=== PATIENT | female | born 1970 | race Caucasian/White ===

== ENCOUNTER 2019-11-06 08:52 | Day surgery (SDC) | payer BC ==
[~2019-11-06] VITALS: Ht 160 cm; Wt 62.2 kg
[~2019-11-06 08:52] MED LIST: ALBU90OI; ALBU90OI6 INH; ALLERGY SHOT; CRUTCH3 USE; CYAN500 PO; CYCL10 PO; ELET40TA PO; FLAX; Flonase 0.05% N16 GM; GABA100 PO; HYDACE5 PO; HYDMOR2 PO; IBUP400 PO; IBUP600 PO; METPRE4DP PO; MONT10T; MUSCLE RELAXER; Magnesium500 M1 PO; NAPR550 PO; Norco 5-325 Ta1 EACH PO; POTCIT5 PO; PROM25 PO; PROM50S PR; QVAR REDIHALE10.6 G1 INH; TOCO400; TOPI100 PO; TOPI50 PO; Ultram50 MG PO; Zofran Odt4 MG SL
[2019-11-06] MEDS ORDERED: TOPI25 PO (11:00)
== END 2019-11-06 13:53 | disposition home or self-care (01) ==
LOC: ORSCSDS 08:52
PROVIDERS: Orthopaedic Surgery
PROC: 0LN50ZZ Release Right Lower Arm and Wrist Tendon, Open Approach (ICD-10-PCS; principal; 2019-11-06 12:30)
DX: M65.4 Radial styloid tenosynovitis [de Quervain] (principal); J44.9 Chronic obstructive pulmonary disease, unspecified; J45.909 Unspecified asthma, uncomplicated; Z79.899 Other long term (current) drug therapy
CPT/HCPCS: J1100; J1885; J2250; J2405; J3010; J3370; J7120

== ENCOUNTER → 2021-10-02 | Outpatient (CLI) | payer BC ==
[~2021-10-02] MED LIST changes: +TOPI25 PO
[2021-10-06 14:08] LABS: HPV 16 Negative (Negative); HPV 18 Negative (Negative); HPV OTHER HR TYPES Negative (Negative)
== END ==
LOC: LAB SHORT 18:50 → LAB 18:50
PROVIDERS: Obstetrics & Gynecology
DX: Z01.419 Encounter for gynecological examination (general) (routine) without abnormal findings (principal)
CPT/HCPCS: 87624; G0123

== ENCOUNTER 2022-02-17 09:23 | Day surgery (SDC) | payer BC | END 2022-02-17 23:30 | disposition home or self-care (01) | LOC: RAD 09:23 → MRI 11:00 → RAD 23:30 → MRI 03-25 09:00 | DX: S83.281D Other tear of lateral meniscus, current injury, right knee, subsequent encounter (principal) | CPT/HCPCS: 20610; 73722; 77002; A9577; Q9967 ==

== ENCOUNTER 2022-02-23 12:19 | Day surgery (SDC) | payer BC ==
[~2022-02-23] VITALS: Ht 160 cm; Wt 61.0 kg
[2022-02-23] MEDS ORDERED: MONTELUKAST SODI4 M1 (12:52)
--- NOTE | 2022-02-23 13:38 | NUR ---
02/23/22 1338 Tran Luu PT WITH NAUSEA AND VOMITING AFTER 2ND PREP THIS AM. HAS VOMITED 3 TIMES TODAY. IV ZOFRAN 4MG PER BO GIVEN ORDERED. PT WITH EMESIS BAG AT SIDE. BED IN LOW, LOCKED POSITION, CALL LIGHT IN REACH.
== END 2022-02-23 15:22 | disposition home or self-care (01) ==
LOC: ORSCSDS 12:19
PROVIDERS: Student in an Organized Health Care Education/Training Program
PROC: 0DBK8ZX Excision of Ascending Colon, Via Natural or Artificial Opening Endoscopic, Diagnostic (ICD-10-PCS; principal; 2022-02-23 13:45)
PROC: 0DBL8ZX Excision of Transverse Colon, Via Natural or Artificial Opening Endoscopic, Diagnostic (ICD-10-PCS; principal; 2022-02-23 13:45)
DX: Z12.11 Encounter for screening for malignant neoplasm of colon (principal); D12.2 Benign neoplasm of ascending colon; D12.3 Benign neoplasm of transverse colon; J45.909 Unspecified asthma, uncomplicated; Z79.899 Other long term (current) drug therapy; Z79.82 Long term (current) use of aspirin
CPT/HCPCS: 82947; 88305; J2405; J2704; J7120

== ENCOUNTER → 2022-08-18 | Outpatient (CLI) | payer BC ==
[~2022-08-18] MED LIST changes: +MONTELUKAST SODI4 M1
== END | disposition home or self-care (01) ==
LOC: LAB SHORT 09:59 → LAB 09:59
DX: A49.9 Bacterial infection, unspecified (principal); B37.2 Candidiasis of skin and nail
CPT/HCPCS: 87070; 87205